=== PATIENT | female | born 1975 | race Caucasian/White ===

== ENCOUNTER 2020-03-29 13:24 | Emergency (ER) | payer OTHER, BC, SELFPAY ==
--- NOTE | ~2020-03-29 | CT_ITS ---
EXAMINATION: CT brain wo con INDICATION: Confusion COMPARISON: None TECHNIQUE: Standard unenhanced head CT. The dose-length product (DLP) was 605.33 mGy-cm. The mA was a djusted according to patient size. Iterative reconstruction technique was employed. FINDINGS: There is no intracranial hemorrhage, acute infarction, or abnormal mass lesion. The ventric les are normal. There is no abnormal mass effect or midline shift. The alejandro-white matter differentiat ion is normal. The basal cisterns are patent. The orbits are normal. There is mild mucosal thickening of the paranasal sinuses. IMPRESSION: 1. No acute intracranial abnormality. Reviewed, dictated and finalized at location A.
--- NOTE | ~2020-03-29 | CT_ITS ---
EXAMINATION: CT cervical spine wo con DATE: 03/29/2020 14:05 INDICATION: Neck pain TECHNIQUE: Computed tomography (CT) of the cervical spine was performed without intravenous contrast. The dose-length product (DLP) was 314.59 mGy-cm. Automated exposure control and iterative reconstruc tion technique were employed. COMPARISON: None FINDINGS: There is no fracture, dislocation, or subluxation. The vertebral body heights, alignment, a nd intervertebral disc spaces are normal. The paravertebral soft tissues are unremarkable. The odonto id is intact. IMPRESSION: 1. Normal cervical spine. Reviewed, dictated and finalized at location A. IMPRESSION: 1. Normal cervical spine.
[2020-03-29 13:36] VITALS: BP 189/100; PULSE 109; RESP 18; TEMP 37; O2SAT 97
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
== END 2020-03-29 15:17 | disposition home or self-care (01) ==
PROVIDERS: Emergency Provider Emergency Medicine; PCP Family Medicine
DX: S06.0X0A Concussion without loss of consciousness, initial encounter (principal); M54.2 Cervicalgia; F17.210 Nicotine dependence, cigarettes, uncomplicated; V43.52XA Car driver injured in collision with other type car in traffic accident, initial encounter
CPT/HCPCS: 70450; 72125; 99284

== ENCOUNTER 2020-10-17 13:59 | Emergency (ER) | payer BC, SELFPAY ==
--- NOTE | 2020-10-17 14:05 | ED.DENTAL ---
HPI - Dental/Oral General Chief complaint: Dental/Oral Stated complaint: swelling right side fac Time Seen by Provider: 10/17/20 14:10 Source: patient and RN notes reviewed Mode of arrival: ambulatory Limitations: no limitations History of Present Illness HPI Narrative: 45-year-old female presents with concern for lump below her right jaw that is tender, larry. She reports that lump varies in size, gets larger after she eats. Denies any dental pain, injury. Reports she has been sucking on sour candies which makes the lump larger. She denies fever, malaise, difficulty swallowing MD Complaint: tooth pain Related Data Home Medications Medication Instructions Recorded Confirmed alprazolam 1 mg PO TID 10/17/20 10/17/20 sertraline 100 mg PO DAILY 10/17/20 10/17/20 tramadol 50 mg PO DIRECTED 10/17/20 10/17/20 Allergies Allergy/AdvReac Type Severity Reaction Status Date / Time diazepam Allergy Severe hives Verified 10/17/20 14:06 cefdinir Allergy Mild RASH Verified 10/17/20 14:06 metronidazole AdvReac Mild HEADACHE, Verified 10/17/20 14:06 VOMITING hydrocodone AdvReac Unknown Vomiting Verified 10/17/20 14:06 Review of Systems Review of Systems: Narrative: CONSTITUTIONAL: Denies malaise, chills, sweats, or fever. EYES: Denies visual changes, ENT: Denies rhinorrhea, congestion, sinus pain, otalgia, sore throat, dental pain. Reports swelling and pain below the right jaw CARDIOVASCULAR: Denies chest pain, palpitations, or edema. RESPIRATORY: Denies cough or dyspnea. SKIN: Denies rash or itching. MUSCULOSKELETAL: Denies myalgia. NEUROLOGIC: Denies headache. All systems reviewed & are unremarkable except as noted in HPI and below PMFSH Surgical History Surgical History (Updated 03/29/20 @ 13:56 by Donna Seymour MD) History of breast surgery Social History Social History (Updated 03/29/20 @ 13:56 by Donna Seymour MD) Smoking status: Current every day smoker Alcohol intake: current Substance use: never Gender identity (if verbalized by the patient): Female Comments At time of signature, agree with nursing past medical, surgical, social and family history. There is no relevant family history pertinent to the presenting complaint Exam Narrative: Exam Narrative: GENERAL: Well-appearing, well-nourished, and in no acute distress. HEAD: Normocephalic, atraumatic. EYES: PERRLA, conjunctivae clear ENT: Nares clear. Mucous membranes moist. TM pearly alejandro with sharp light reflex bilaterally; no tragal tenderness. Oropharynx without erythema or lesions. Tonsils not enlarged and without exudate. Dental caries noted. NECK: Supple. Submandibular mass, tender, not warm or erythematous. No jugular venous distension, thyromegaly, or carotid bruits. Carotids were easily palpable bilaterally. CHEST: No respiratory distress. Speaks in full sentences. HEART: Regular rate and rhythm. No murmur heard. Normal peripheral pulses. SKIN: Warm, dry, no rash. NEURO: Alert and oriented x3. PSYCH: Normal mood and affect Course Course Emergency Course: Patient is aware of diagnosis, understands and agrees to treatment plan. Anticipatory guidance given. Patient agrees to follow-up as directed and is aware of reasons to seek care at the emergency department. Portions of this record may have been created with voice recognition software Vital Signs Vital signs: Vital Signs Temperature 99.3 F 10/17/20 14:09 Pulse Rate 106 H 10/17/20 14:09 Respiratory Rate 16 10/17/20 14:09 Blood Pressure 156/96 H 10/17/20 14:09 Pulse Oximetry 99 10/17/20 14:09 Temperature 99.3 F 10/17/20 14:13 Pulse Rate 106 H 10/17/20 14:13 Respiratory Rate 16 10/17/20 14:13 Blood Pressure 156/96 H 10/17/20 14:13 Pulse Oximetry 99 10/17/20 14:13 Reviewed. MDM - Dental/Oral MDM Narrative Medical decision making narrative: Exam findings show no acute concerns or changes; patient is non-toxic appearing and is in no distres
[2020-10-17 14:09] VITALS: BP 156/96; PULSE 106; RESP 16; TEMP 37.4; O2SAT 99
[2020-10-17 14:13] VITALS: BP 156/96; PULSE 106; RESP 16; TEMP 37.4; O2SAT 99
== END 2020-10-17 14:23 | disposition home or self-care (01) ==
PROVIDERS: Emergency Provider Nurse Practitioner; PCP Family Medicine
DX: K11.20 Sialoadenitis, unspecified (principal); F17.200 Nicotine dependence, unspecified, uncomplicated; M79.7 Fibromyalgia
CPT/HCPCS: 99213; G0463

== ENCOUNTER 2021-01-18 11:41 | Outpatient (CLI) | payer BC, SELFPAY ==
[2021-01-18 12:29] LABS: Basophils Absolute Auto 0.1 K/mm3 (0.0-0.1); Basophils Percent Auto 0.7 % (0.2-1.2); Eosinophils Absolute Auto 0.2 K/mm3 (0-0.3); Eosinophils Percent Auto 2.6 % (0-4.4); Hematocrit 38.9 % (37.0-47.0); Immature Granulocyte Absolute 0.04 K/mm3 (0.00-0.031); Immature Granulocyte Percent A 0.6 % (0-0.5); Lymphocytes Absolute Auto 2.08 K/mm3 (0.9-3.2); Lymphocytes Percent Auto 29.9 % (18.3-44.2); Mean Corpuscular HGB Conc 33.4 g/dl (32-36); Mean Corpuscular Hemoglobin 32.3 pg (26-34); Mean Corpuscular Volume 96.8 fl (80-100); Monocytes Absolute Auto 0.4 K/mm3 (0.1-0.6); Monocytes Percent Auto 6.3 % (2.6-8.5); Neutrophils Absolute Auto 4.2 K/mm3 (1.3-6.7); Neutrophils Percent Auto 59.9 % (45.5-73.1); Platelet Count Result 247 k/mm3 (150-375); Red Blood Count 4.02 M/mm3 (4.2-5.4); Red Cell Distribution Width 14.1 % (11.5-14.5)
[2021-01-18 12:53] LABS: Alanine Aminotransferase 10 U/L (4-35); Albumin Level 4.1 g/dL (3.5-5.1); Alkaline Phosphatase 79 U/L (38-126); Anion Gap 4 mmol/L (8-16); Aspartate Amino Transferase 18 U/L (14-36); Bilirubin,Total 0.2 mg/dL (0.2-1.3); Blood Urea Nitrogen 9 mg/dL (7-17); Calcium 9.2 mg/dL (8.4-10.2); Carbon Dioxide 28 mmol/L (22-30); Chloride 105 mmol/L (98-107); Cholesterol 266 mg/dL (0-200); Estimated Glomerular Filt Rate > 60; Glucose 98 mg/dL (65-105); HDL Direct 62 mg/dL; Potassium 4.3 mmol/L (3.4-5.0); Sodium 137 mmol/L (137-145); Triglycerides 214 mg/dL (<150)
[2021-01-18 13:05] LABS: LDL Cholesterol Direct 199 mg/dL
== END 2021-01-18 11:42 | disposition home or self-care (01) ==
PROVIDERS: PCP Family Medicine; Visit Provider Family Medicine
DX: E78.2 Mixed hyperlipidemia (principal)
CPT/HCPCS: 36415; 80053; 80061; 85025

== ENCOUNTER 2022-05-20 14:41 | Emergency (ER) | payer OTHER, SELFPAY ==
[2022-05-20 14:51] VITALS: BP 181/88; PULSE 92; RESP 16; TEMP 36.8; O2SAT 100
--- NOTE | 2022-05-20 16:23 | ED.URI ---
HPI - URI/Sore Throat General Chief Complaint: Upper Respiratory Infection Stated Complaint: Sore Throat Time Seen by Provider: 05/20/22 16:15 Source: patient Mode of arrival: ambulatory Limitations: no limitations History of Present Illness HPI Narrative: Patient presents today complaining of Intermittent sore throat that is worse with swallowing since yesterday. Denies fever or cough. Reports multiple sick contacts at work. She has done 2 COVID-19 test at home and both were negative. She currently rates her pain 6/10 and has been taking Advil with relief. Related Data Home Medications Medication Instructions Recorded Confirmed alprazolam 1 mg tablet 1 mg PO TID 10/17/20 10/17/20 sertraline 100 mg tablet 100 mg PO DAILY 10/17/20 10/17/20 tramadol 50 mg tablet 50 mg PO DIRECTED 10/17/20 10/17/20 Allergies Allergy/AdvReac Type Severity Reaction Status Date / Time diazepam Allergy Severe hives Verified 10/17/20 14:06 cefdinir Allergy Mild RASH Verified 10/17/20 14:06 metronidazole AdvReac Mild HEADACHE, Verified 10/17/20 14:06 VOMITING hydrocodone AdvReac Unknown Vomiting Verified 10/17/20 14:06 Review of Systems Review of Systems: CONSTITUTIONAL: Denies body aches, fever, chills, or sweats. EYES: Denies visual changes, redness, or discharge. ENT: Denies rhinorrhea, congestion, or otalgia.+Sore throat CARDIOVASCULAR: Denies chest pain, palpitations, or edema. RESPIRATORY: Denies cough or dyspnea. GASTROINTESTINAL: Denies abdominal pain, nausea, vomiting, or diarrhea. GENITOURINARY: Denies dysuria or hematuria. SKIN: Denies rash, itching, or wounds. MUSCULOSKELETAL: Denies back pain, joint pain, or myalgia. NEUROLOGIC: Denies headache, numbness, tingling, or weakness. PSYCH: Denies depression or anxiety. [facility] Surgical History Surgical History History of breast surgery Social History Social History Smoking status: Current every day smoker Alcohol intake: current Substance use: never Gender identity (if verbalized by the patient): Female Comments At time of signature, I have reviewed and agree with nursing past medical, surgical, social and family history unless otherwise noted. Please see nursing chart for further information. There is no relevant family history pertinent to the presenting complaint Exam Narrative: GENERAL: Well-appearing, well-nourished, and in no acute distress. HEAD: Normocephalic, atraumatic. EYES: EOMI. No redness or drainage. Conjunctivae normal. ENT: Mucous membranes pink and moist. Nares clear. No rhinorrhea. TMs normal bilaterally. Throat is mildly erythematous. Small amount of white exudate on each tonsil. Tonsils 2+.. Uvula midline. NECK: Normal AROM. Supple. No lymphadenopathy. CHEST: No respiratory distress. Clear to auscultation. HEART: Regular rate and rhythm. No murmur appreciated. Normal peripheral pulses. EXTREMITIES: Normal range of motion. No edema. SKIN: Warm, dry, no rash. Capillary refill normal. Normal skin turgor. NEURO: No focal deficits. Alert and oriented x3. Gait steady. PSYCH: Normal affect. No signs of depression or anxiety. Course Course Level of Care: Express Care Visit Vital Signs Vital signs: Vital Signs Temperature 98.2 F 05/20/22 14:51 Pulse Rate 92 05/20/22 14:51 Respiratory Rate 16 05/20/22 14:51 Blood Pressure 181/88 H 05/20/22 14:51 Pulse Oximetry 100 05/20/22 14:51 Oxygen Delivery Room Air 05/20/22 14:51 Temperature 98.2 F 05/20/22 14:51 Pulse Rate 92 05/20/22 14:51 Respiratory Rate 16 05/20/22 14:51 Blood Pressure 181/88 H 05/20/22 14:51 Pulse Oximetry 100 05/20/22 14:51 Oxygen Delivery Room Air 05/20/22 14:51 Reviewed. Pt has been instructed to follow up with her PCP regarding her elevated blood pressure today. MDM - URI/Sore Throat Different
== END 2022-05-20 16:28 | disposition home or self-care (01) ==
PROVIDERS: Emergency Provider Nurse Practitioner; PCP Family Medicine
DX: J02.8 Acute pharyngitis due to other specified organisms (principal); F17.200 Nicotine dependence, unspecified, uncomplicated
CPT/HCPCS: 87081; 87880; 99213; G0463